=== PATIENT | male | born 1955 | race Caucasian/White ===

== ENCOUNTER 2023-01-16 05:32 | Outpatient (CLI) | payer MEDICARE ==
[~2023-01-16] VITALS: Ht 177.8 cm; Wt 91.9 kg
[2023-01-19] MEDS ORDERED: OMEG100032 PO (15:17)
[2023-01-19] MEDS ORDERED: RT-ALBUINH INH (15:17)
[2023-01-19] MEDS ORDERED: TUME1CAP PO (15:17)
== END 2023-01-19 15:26 | disposition home or self-care (01) ==
LOC: PREOP 05:32
PROVIDERS: ATTEND Surgery
DX: Z01.818 Encounter for other preprocedural examination (principal)

== ENCOUNTER 2023-01-22 07:30 | Day surgery (SDC) | payer MEDICARE ==
[~2023-01-22] VITALS: Ht 177.8 cm; Wt 91.9 kg
[2023-01-22] VITALS (12 sets, daily range): BP systolic 118–146; BP diastolic 70–93
[~2023-01-22 07:30] MED LIST: OMEG100032 PO; RT-ALBUINH INH; TUME1CAP PO
[2023-01-22] MEDS ORDERED: BUP/EPI 0.5% 1:200,000 (SENSORCAINE) 30 ML VIAL ONE (07:50)
[2023-01-22] MEDS ORDERED: ceFAZolin INJECTION 2,000 MG in NS (IVPB) 50 ML IV ONE (08:00)
[2023-01-22] MEDS: LACTATED RINGERS 1,000 ML IV PRN ×2 (08:09→10:28)
[2023-01-22] MEDS ORDERED: LIDOCAINE PF 2% 5 ML (XYLOCAINE) VIAL ONE (08:17)
[2023-01-22] MEDS ORDERED: proPOfol 200 MG/20 ML (DIPRIVAN) VIAL IV ONE (08:17)
[2023-01-22] MEDS ORDERED: GLYCOPYRROLATE 0.2 MG/ML (ROBINUL) 2 ML VIAL ONE (08:17)
[2023-01-22] MEDS ORDERED: ONDANSETRON 4 MG/2 ML (SDV) Z0FRAN ONE (08:17)
[2023-01-22] MEDS ORDERED: fentaNYL INJ 100 MCG/2 ML AMP ONE (08:17)
--- NOTE | 2023-01-22 08:28 | Progress Note-Pre Operative ---
Pre-Operative Progress Note Date of Available H&P: Jan 15, 2023 Date H&P Reviewed: Jan 22, 2023 Time H&P Reviewed: 08:24 History & Physical: H&P Reviewed, Patient Examed, No changes noted Pre-Operative Diagnosis: Incarcerated umbilical hernia BREA EAGLE DO Jan 22, 2023 08:28
[2023-01-22] MEDS ORDERED: ROCURONIUM 50 MG/5 ML (ZEMURON) VIAL IV ONE (08:43)
[2023-01-22] MEDS ORDERED: NEOSTIGMINE (BLOXIVERZ ) 1 MG/1ML 10 ML VIAL ONE (08:43)
[2023-01-22] MEDS ORDERED: HYDROmorphone 2 MG/ML VIAL (DILAUDID) ONE (09:25)
[2023-01-22] MEDS ORDERED: SEVOFLURANE (ULTANE) 15 ML INHAL SOLN ONE ×2 (09:29→09:30)
[2023-01-22] MEDS ORDERED: ACHD5005 PO (09:38)
--- NOTE | 2023-01-22 09:38 | Progress Note-Post Operative ---
Post-Operative Progess Note Surgeon (s)/Size Maker (s) Surgeon BREA EAGLE DO Size Maker: none Pre-Operative Diagnosis Incarcerated umbilical hernia Post-Operative Diagnosis Same, defect less than 3cm Procedure & Operative Findings Date of Procedure 01/22/23 Procedure Performed/Findings PROCEDURE: Laparoscopic Umbilical hernia repair with mesh. COMPLICATIONS: None. INDICATIONS: The patient is a 67 yo male with an incarcerated umbilical hernia, which has continued to increase in size and cause discomfort. The patient was explained the risk and benefits of the procedure and wished to proceed with the procedure. Consent was signed on the chart. DESCRIPTION OF PROCEDURE: The patient was taken into the operating suite, prepped and draped in sterile fashion. Surgical pause was performed. Local anesthetic was infiltrated in left upper quadrant. A #11 blade scalpel was used to make a small skin incision. Cautery was used to dissect down to the fascia, which was then scored and divided the muscle, went through the posterior sheath and a balloon trocar was inserted into the abdomen. The abdomen was then insufflated. Saw a small incarcerated umbilical hernia, took a picture and noted that it was approximately 1cm defect. A 5 mm trocar was placed in the right lower quadrant and a 5 mm trocar was placed in left lower quadrant. Took down the incarcerated fat with Ligasure and then able to get the fat out of the defect. A small stab incision was made in the umbilic us and the Blaine-Aline was inserted under visualiztion. Echo Ventralight mesh was then inserted into the abdomen and grabbed with Blaine-Aline. The balloon was inflated on the mesh. Circumferential tacks were placed with a SecureStrap Tacker. The balloon was then removed and inner crown was created as well. The mesh was tacked with pressure being decreased. The 12 mm fascial defect was then closed using 0 Vicryl. The abdomen was then desufflated,the trocars were removed. The skin was then closed using 4-0 Monocryl in an interrupted subcuticular fashion. The abdomen was washed and dried and Skin Affix was placed over the incisions. The patient tolerated procedure well without any complications. He was taken to recovery room in stable condition. Anesthesia Type GET Estimated Blood Loss Estimated blood loss (mL): less than 20ml Specimens/Packing Specimens Removed none BREA EAGLE DO Jan 22, 2023 09:38
--- NOTE | 2023-01-22 09:40 | Discharge Inst-Surgical ---
Discharge Inst-Surgical Depart Medication/Instructions New, Converted or Re-Newed RX: Transmitted to Pharmacy Patient Instructions Follow up Appt: Make appointment for 1 week. [phone] Instructions: No lifting greater than 20 pounds. No strenuous activity. May shower in 24 hours, no tub bath or soaking. Use incentive spirometer at home as directed. No Smoking Skin/Wound Care: May remove bandages in am. You need to leave the Dermabond on incision it will fall off on it's own. Symptoms to Report: Appetite Changes, Extremity Discoloration, Numbness/Tingling, Swelling Increased, Bleeding Excessive, Eyesight Changes, Pain Increased, Urine Color Change, Constipation(Persistent), Fever over 101 degree F, Pain/Pressure in chest, Urinating Difficulty, Cough Up/Vomit Blood, Heart Beat Irreg/Pounding, Pain/Pressure in jaw, Cramps in feet or legs, Lightheadedness, Pain/Pressure in shoulder, Diarrhea(Persistent), Memory Changes Suddenly, Questions/Concerns, Weight gain consecutive days, Dizziness/Fainting, Nausea/Vomiting, Shortness of Breath, Weight gain over 2 pounds If questions or concerns contact your physician Or seek help at emergency department. Activity Activity as Tolerated: Yes Activity Instructions: Avoid Stress to Incision Driving Instructions: No Driving/Refer to Dr. Romero Discharge Diet: No Restrictions Diet After 24 Hours: Clear Liquid if Nauseous If Any Problems/Questions/Issu: Contact Your Physician, Go to Emergency Room Skin/Wound Care Infection Signs and Symptoms: Increased Redness, Foul Odor of Wound, Increased Drainage, Skin Itchy or Has a Rash, Increased Swelling, Temperature Above 101 F Wound Care Comment: heating pad to shoulder or neck tonight for pain. Take the dressing off belly button on Thursday Bathing Instructions: Shower Stitches/Olga/Dermabond Dis: Dermabond BREA EAGLE DO Jan 22, 2023 09:40
[2023-01-22] MEDS ORDERED: morphine INJ 10 MG/ML 1ML (SYR OR VIAL) IVP ONE (10:00)
[2023-01-22] MEDS ORDERED: ONDANSETRON 4 MG/2 ML (SDV) Z0FRAN IVP PRN (10:00)
[2023-01-22] MEDS ORDERED: HYDROmorphone 2 MG/ML VIAL (DILAUDID) IV ONE (10:00)
--- NOTE | 2023-01-22 11:09 | Anesthesia-General Post-Op ---
General Patient Condition Mental Status/LOC: Same as Preop Cardiovascular: Satisfactory Nausea/Vomiting: Absent Respiratory: Satisfactory Pain: Controlled Complications: Absent Post Op Complications Complications None Follow Up Care/Instructions Patient Instructions None needed. Anesthesia/Patient Condition Patient Condition Patient is doing well, does C/O abdominal pain which is to be expected, stable vital signs, no apparent adverse anesthesia problems. No complications reported per nursing. LUCA MUNGUIA DO Jan 22, 2023 11:09
[2023-01-22] MEDS ORDERED: HYDROcodone/APAP 5 MG/325 MG (LORTAB) TAB PO ONE (11:15)
== END 2023-01-22 12:15 | disposition home or self-care (01) ==
LOC: SDC 07:30
PROVIDERS: ATTEND Surgery
DX: K42.0 Umbilical hernia with obstruction, without gangrene (principal); Z28.310 Unvaccinated for COVID-19
CPT/HCPCS: 49594; 87081; C1781